=== PATIENT | male | born 1950 | race Caucasian/White ===

== ENCOUNTER → 2018-11-03 | Outpatient (RCR) | payer MEDICARE, OTHER ==
--- NOTE | 2018-10-31 14:43 | CARECAPL ---
Assessment Account #s: Initial Assessment General Diagnoses: Stent, STEMI Date of event: Sep 26, 2018 Physician: Jr Hwang Collins Allergies: Coded Allergies: No Known Drug Allergy (Verified Allergy, Unknown, 11/16/14) Date Entered Program: Oct 31, 2018 Risk strat for cardiac event: Low Exercise Date: Oct 31, 2018 Assessment: Initial Assessment Exercise Prescription Plan TO EDUCATE AND BUILD ENDURANCE THROUGH MONITORED EXERCISE Modalities initiated: Nustep (METS=2.6/RPE=2), Arm Aerometer (METS=2.9/RPE=3), Recumbent Bike (METS=3.7/RPE=2) Frequency: 3 Duration (Minutes) 30-60 minutes total exercise a day. 12-15 work intervals in minutes. 5 MINUTES PRN rest intervals in minutes. Functional Capacity Goal Sustained Metabolic Equivalent of a task (MET) goal of 4.25-5.0 for 15-20 MINUTES minutes. Intensity: 3-Moderate Progression (METS) Increase by: 0.5 METS every: 3-5 sessions Angina with ex: No Target Heart Rate +35-40 BASED ON BETA SHIKHA THERAPY Resistance Training: Yes Weight (pounds): 2 Reps: 12-15 (WILL ADD) Hypertension: Yes Hypertension controlled with: Medication Resting 158/80 Peak Exercise BP 180/100 Medications Scheduled Apixaban Base (Eliquis), 5 MG PO BID, (Reported) Aspirin (Aspir-Low), 81 MG PO DAILY, (Reported) Atorvastatin Calcium (Atorvastatin Calcium), 80 MG PO DAILY, (Reported) Metoprolol Succinate (Metoprolol Succinate ER), 50 MG PO DAILY, (Reported) Nitroglycerin (Nitroglycerin), 0.4 MG SL ASDIRECTED, (Reported) Ticagrelor Base (Brilinta), 90 MG PO BID, (Reported) Discontinued Medications Acetaminophen (Tylenol), 650 MG PO Q4HP PRN for TEMP => 100, (Reported) Discontinued Reason: Pt states not taking Oxycodone/Acetaminophen (Percocet 5-325 mg), 1 TAB PO Q4HP PRN for PAIN, (Reported) Discontinued Reason: Pt states not taking Warfarin Sod (Coumadin), 2.5 MG PO DAILY@5PM, (Reported) Discontinued Reason: Pt states not taking Current BP 122/86 Med Change: No Intervention Education: Self pulse, Ex safety, S/S to report, Low NA diet, BP medication, RPE Scale, Equipment orientation, warm up/cool down, Understand BP, Physical Active Target Goals Individual exercise Rx (1) BP 140/90 or 130/80 if DM or CKD (1) Aerobic active 30+min 5 days per week (1) Nutrition Date: Oct 31, 2018 Assessment: Initial Assessment Lipid- med/supplement ATORVASTATIN 80 MG DAILY Med Change: No Diabetes Diabetes: No Monitor Blood Sugar at home: No Medication Change: No Blood sugar in range: Yes Weight Management Weight (lbs): 222.2 Height (inches): 74 Waist Circumference (Inches): 42 BMI: 28.5 Special Diet: low salt, low-fat Alcohol: none Diet Access Tool: Rate your plate Score: 64 Current Weight (pounds): 222 Intervention Product Control And Logistics Analyst Consult: No Nurse/patient discussion: Yes Dietary Goals TO MAKE HEART HEALTHY CHOICES Diet Class: Yes Referral to Diabetes education: No Referral to lipid clinic: No Referral to weight mangement p: No Education Eating Healthy Target goal LDL-C<100 if triglycerides are >200 Non-HDL-C should be <130 (1) LDL-C<70 for high risk patients (4) HbA1c<7% (1) BMI<25 Waist cir<40in M/<35in F (1) Education Date: Oct 31, 2018 Assessment: Initial Assessment Learning Barriers: ready Knowledge Test Score: 9 Family Support: Yes Tobacco use: No Intervention Referral to smoking cessation: No Individual education and couns: No Tobacco Adjunct: No Education class schedule given: No Attended education classes: No Education: CAD, Risk factors, med compliance, cardiac A&P, Angina S/S, Sexuality Target Goals Complete cessation of tobacco use (1). Psychosocial Date: Oct 31, 2018 Assessment: Initial Assessment Psych Test (Initial/Discharge) Tool Used: CESD Score: 0 Intervention Physician Consult: No Physician Referral: No Med Change: No Stress Management Class: No Uses Stress Management Skills: Yes Education Education: Coping Techniques, S/S depression, Relaxation Techniques Target Goal Assess presence or absence of depression using a valid screening tool (1). Maximize coping skills (2). Positive support system (2). Patient/Program Goal Preventative Medication: Yes Aspirin, Yes Beta blockade, Yes Statin/OTR lipid Lowering Fall Risk Assess: Yes (NOT A FALL RISK) Provider Assessment Session Number: 1 Provider Assessment: Proceed with rehab Austin Onofre RN Oct 31, 2018 14:43
[~2018-11-03] MED LIST: ASPI81TA21 PO; ATOR80TA59 PO; BRIL90TA PO; COUM2.5T17 PO; ELIQ5TAB PO; METO1TAB7 PO; NITR0.4S14 SL; PERC5TAB12 PO; TYLE325T5 PO; aleve OR
== END ==
LOC: M CR 10-31 12:02
PROVIDERS: ATTEND Internal Medicine
DX: Z98.61 Coronary angioplasty status (principal)

== ENCOUNTER 2018-12-02 09:00 | Outpatient (RCR) | payer MEDICARE, OTHER ==
--- NOTE | 2018-11-23 10:54 | CARECAPL ---
Assessment Account #s: Re-Assessment I General Diagnoses: Stent, STEMI Date of event: Sep 26, 2018 Physician: Jr Hwang Collins Allergies: Coded Allergies: No Known Drug Allergy (Verified Allergy, Unknown, 11/16/14) Date Entered Program: Oct 31, 2018 Risk strat for cardiac event: Low Exercise Date: Nov 23, 2018 Assessment: Re-Assessment I Exercise Prescription Modalities initiated: Treadmill (mets 3.53 RPE 3), Nustep (mets 4.7 RPE 3.5), Arm Aerometer (mets 3.62 RPE 3), Dumbells (5lbs RPE 3), Recumbent Bike (mets 4.5 RPE 3) Frequency: 3 Duration (Minutes) minutes total exercise a day. work intervals in minutes. rest intervals in minutes. Functional Capacity Goal Sustained Metabolic Equivalent of a task (MET) goal of for minutes. Intensity: 3-Moderate Progression (METS) Increase by: METS every: sessions Medications Scheduled Apixaban Base (Eliquis), 5 MG PO BID, (Reported) Aspirin (Aspir-Low), 81 MG PO DAILY, (Reported) Atorvastatin Calcium (Atorvastatin Calcium), 80 MG PO DAILY, (Reported) Metoprolol Succinate (Metoprolol Succinate ER), 50 MG PO DAILY, (Reported) Nitroglycerin (Nitroglycerin), 0.4 MG SL ASDIRECTED, (Reported) Ticagrelor Base (Brilinta), 90 MG PO BID, (Reported) Current BP 150/80 Med Change: No Education Goals Met: Yes Target Goals Individual exercise Rx (1) BP 140/90 or 130/80 if DM or CKD (1) Aerobic active 30+min 5 days per week (1) Nutrition Date: Nov 23, 2018 Assessment: Re-Assessment I Med Change: No Medication Change: No Current Weight (pounds): 220 Intervention Auger Press Operator Consult: No Nurse/patient discussion: No Diet Class: No Education Goals Met: No Target goal LDL-C<100 if triglycerides are >200 Non-HDL-C should be <130 (1) LDL-C<70 for high risk patients (4) HbA1c<7% (1) BMI<25 Waist cir<40in M/<35in F (1) Education Date: Nov 23, 2018 Assessment: Re-Assessment I Education Goals Met: Yes Target Goals Complete cessation of tobacco use (1). Psychosocial Date: Nov 23, 2018 Assessment: Re-Assessment I Med Change: No Stress Management Class: No Uses Stress Management Skills: No Education Goals Met: Yes Target Goal Assess presence or absence of depression using a valid screening tool (1). Maximize coping skills (2). Positive support system (2). Fall Risk Assess: No Provider Assessment Session Number: 10 Provider Assessment: Proceed with rehab Reanna Harp RN Nov 23, 2018 10:54
== END 2018-12-04 ==
LOC: M CR 09:00
PROVIDERS: ATTEND Internal Medicine
DX: Z98.61 Coronary angioplasty status (principal); Z95.5 Presence of coronary angioplasty implant and graft

== ENCOUNTER → 2018-12-13 | Outpatient (REF) | payer MEDICARE, OTHER | LOC: M LAB REF 12:16 | PROVIDERS: ATTEND Nurse Practitioner Adult Health | DX: R20.9 Unspecified disturbances of skin sensation (principal) ==

== ENCOUNTER 2018-12-16 09:11 | Outpatient (RCR) | payer MEDICARE, OTHER ==
--- NOTE | 2018-12-16 09:15 | CARECAPL ---
Assessment Account #s: Re-Assessment II (discharge assessment) General Diagnoses: Stent, STEMI Date of event: Sep 26, 2018 Physician: Erich Encinas Allergies: Coded Allergies: MS - No Known Drug Allergy (Verified Allergy, Unknown, 11/16/14) Date Entered Program: Oct 31, 2018 Risk strat for cardiac event: Low Exercise Date: Dec 16, 2018 Assessment: Followup/Discharge Exercise Prescription Plan to complete a monitored exercise program and be educated regarding the risk of cardiac disease, and necessary changes to make in lifestyle Modalities initiated: Treadmill (2.8/1.5 15min MTS 3.53 RPE 3), Cardio-Strider (L$ MTS 2.9 RPE 3), Arm Aerometer (4.0 MTS 3.78 R{E3), Dumbells (6#), Recumbent Bike (Level 5 10 min MTS 4.9 RPE 3) Frequency: 3 Duration (Minutes) 30-60 minutes total exercise a day. 8-15 work intervals in minutes. as needed - rest intervals in minutes. Functional Capacity Goal Sustained Metabolic Equivalent of a task (MET) goal of 3.94 for 15 minutes. Intensity: 3-Moderate Progression (METS) Increase by: METS every: sessions Angina with ex: No Target Heart Rate rest +35-40 beta anisa therapy Resistance Training: Yes Weight (pounds): 6 Reps: 8-12 Hypertension: Yes (post exercise blood pressure much improved from admission. Many good changes made with diet) Hypertension controlled with: Diet Resting 118/80 Peak Exercise BP 210/90 Meds see below Medications Scheduled Apixaban (Eliquis), 5 MG PO BID, (Reported) Aspirin (Aspir-Low), 81 MG PO DAILY, (Reported) Atorvastatin Calcium (Atorvastatin Calcium), 80 MG PO DAILY, (Reported) Metoprolol Succinate (Metoprolol Succinate), 50 MG PO DAILY, (Reported) Nitroglycerin (Nitroglycerin), 0.4 MG SL ASDIRECTED, (Reported) Ticagrelor Base (Brilinta), 90 MG PO BID, (Reported) Intervention Home exercise: Type (very active with Doctor kinetic) Education: Self pulse, S/S to report, Low NA diet, BP medication, RPE Scale, Equipment orientation, warm up/cool down, Understand BP, Physical Active Education Goals Met: Yes Target Goals Individual exercise Rx (1) BP 140/90 or 130/80 if DM or CKD (1) Aerobic active 30+min 5 days per week (1) Nutrition Date: Dec 16, 2018 Assessment: Followup/Discharge Med Change: No Diabetes Diabetes: Yes HbA1c (%): 5.0 Diabetes medication see medication list Monitor Blood Sugar at home: No Medication Change: No Blood sugar in range: Yes Weight Management Weight (lbs): 214.6 Height (inches): 74 Waist Circumference (Inches): 41 BMI: 27.47 Weight goal: 215 Diet Access Tool: Rate your plate (59) Score: 59 (Making many healthy choices) Intervention Network Engineering Advisor Consult: No (not available) Nurse/patient discussion: Yes Diet Class: No Referral to Diabetes education: No Referral to lipid clinic: No Referral to weight mangement p: No Education S&S hypo/hyper glycemia, Relate Diabetes in CAD, Eating Healthy Education Goals Met: Yes Target goal LDL-C<100 if triglycerides are >200 Non-HDL-C should be <130 (1) LDL-C<70 for high risk patients (4) HbA1c<7% (1) BMI<25 Waist cir<40in M/<35in F (1) Education Date: Dec 16, 2018 Assessment: Followup/Discharge Learning Barriers: ready Knowledge Test Score: 10 Quit: never smoked Intervention Referral to smoking cessation: No Individual education and couns: No Tobacco Adjunct: No Education class schedule given: Yes Attended education classes: Yes Education: CAD, Risk factors, med compliance, cardiac A&P, Angina S/S, Sexuality Education Goals Met: Yes Target Goals Complete cessation of tobacco use (1). Psychosocial Date: Dec 16, 2018 Assessment: Followup/Discharge Psych Test (Initial/Discharge) Tool Used: CESD Score: 0 Intervention Physician Consult: No Physician Referral: No Med Change: No Stress Management Class: Yes Uses Stress Management Skills: Yes Education Education: Coping Techniques, S/S depression, Relaxation Techniques Education Goals Met: Yes Target Goal Assess presence or absence of depression using a valid screening tool (1). Maximize coping skills (2). Positive support system (2). Patient/Program Goal Preventative Medication: Yes Aspirin, Yes Beta blockade, Yes Statin/OTR lipid Lowering Fall Risk Assess: No Provider Assessment Session Number: 20 Provider Assessment: No changes (discharge assessment) Jackelyn Child RN Dec 16, 2018 09:15
== END 2019-01-03 ==
LOC: M CR 09:11
PROVIDERS: ATTEND Internal Medicine
DX: Z98.61 Coronary angioplasty status (principal)

== ENCOUNTER 2019-04-26 12:13 | Emergency (ER) | payer MEDICARE, OTHER ==
[~2019-04-26] VITALS: Ht 188 cm; Wt 88.6 kg
[2019-04-26 12:13] VITALS: BP 123/74
[2019-04-26] MEDS ORDERED: CEPH500C (12:34)
[2019-04-26 13:33] LABS: HEMATOCRIT 39.4 % (42.0-52.0); HEMOGLOBIN 13.5 g/dl (13.5-17.5); MEAN CORPUSCULAR HGB CONC 34.3 g/dl (32.0-36.5); MEAN CORPUSCULAR VOLUME 90.4 fl (80.0-96.0); PLATELET COUNT, AUTOMATED 193 10^3/uL (150-450); RED BLOOD COUNT 4.36 10^6/uL (4.30-6.10); WHITE BLOOD COUNT 6.7 10^3/uL (4.0-10.0)
[2019-04-26 14:05] LABS: BLOOD UREA NITROGEN 14 MG/DL (7-18); C REACTIVE PROTEIN QUANTITATIV < 0.30 MG/DL (0.00-0.30); CALCIUM LEVEL 8.6 MG/DL (8.8-10.2); CARBON DIOXIDE LEVEL 26 MEQ/L (21-32); CHLORIDE LEVEL 106 MEQ/L (98-107); CREATININE FOR GFR 0.91 MG/DL (0.70-1.30); GLOMERULAR FILTRATION RATE > 60.0 (>49); GLUCOSE, FASTING 85 MG/DL (70-100); POTASSIUM SERUM 3.9 MEQ/L (3.5-5.1); SODIUM LEVEL 139 MEQ/L (136-145)
[2019-04-26 14:24] LABS: ERYTHROCYTE SEDIMENTATION RATE 9 mm/hr (0-20)
[2019-04-26] MEDS ORDERED: LIDOCAINE 2% MDV 20 ML VIAL SC ONE (15:15)
[2019-04-26] MEDS ORDERED: BACT800T5 PO (15:36)
--- NOTE | 2019-04-26 15:46 | REP ---
HISTORY: Swelling and lump in the left medial calf region. Multiple ultrasonographic images over the region of the palpable abnormality show a hypoechoic area which measures 3.6 x 1 x 2 cm, having the appearance of a complex fluid collection. Surrounding soft tissues appear somewhat echogenic and thickened, likely due to edematous changes. Abnormal collection of fluid with edema as described above. A developing abscess should be clinically evaluated for. Electronically Signed by Eulalio Monreal DO 04/26/2019 05:19 P
== END 2019-04-26 16:01 | disposition home or self-care (01) ==
LOC: M ED 12:13
DX: S80.812A Abrasion, left lower leg, initial encounter (principal); L03.116 Cellulitis of left lower limb; I25.10 Atherosclerotic heart disease of native coronary artery without angina pectoris; I10 Essential (primary) hypertension; E78.5 Hyperlipidemia, unspecified; Z95.5 Presence of coronary angioplasty implant and graft; Z79.01 Long term (current) use of anticoagulants; Z79.899 Other long term (current) drug therapy

== ENCOUNTER 2019-10-16 07:37 | Day surgery (SDC) | payer MEDICARE, OTHER ==
[~2019-10-16] VITALS: Ht 188 cm; Wt 97.5 kg
[~2019-10-16 07:37] MED LIST changes: +ASPI81TA85 PO; +BACT800T5 PO; +CEPH500C; +NS 1,000 ML IV ONE
--- NOTE | 2019-10-16 09:06 | ROOR ---
Patient Name: Amado Bradford Procedure Date: 10/16/2019 8:33 AM Date of : 1950 Age: 68 Room: [facility] Gender: Male Note Status: Finalized Procedure: Total Colonoscopy to Cecum + Biopsy Polypectomy Indications: Screening for colorectal malignant neoplasm Providers: Austin Tavera MD Referring MD: PERRY TIMMONS JR, MD Requesting Provider: Medicines: Monitored Anesthesia Care Complications: No immediate complications. Procedure: Pre-Anesthesia Assessment: - The heart rate, respiratory rate, oxygen saturations, blood pressure, adequacy of pulmonary ventilation, and response to care were monitored throughout the procedure. The Colonoscope was introduced through the anus and advanced to the cecum, identified by appendiceal orifice and ileocecal valve. The colonoscopy was performed without difficulty. The patient tolerated the procedure well. The quality of the bowel preparation was excellent. Findings: The perianal and digital rectal examinations were normal. Non-bleeding internal hemorrhoids were found during retroflexion. The hemorrhoids were small and Grade I (internal hemorrhoids that do not prolapse). Multiple small and large-mouthed diverticula were found in the recto-sigmoid colon, sigmoid colon and descending colon. A small polyp was found at 20 cm proximal to the anus. The polyp was sessile. The polyp was removed with a jumbo cold forceps. Resection and retrieval were complete. To prevent bleeding after the polypectomy, one hemostatic clip was successfully placed (MR conditional). There was no bleeding at the end of the procedure. The exam was otherwise without abnormality on direct and retroflexion views. Impression: - Non-bleeding internal hemorrhoids. - Diverticulosis in the recto-sigmoid colon, in the sigmoid colon and in the descending colon. - One small polyp at 20 cm proximal to the anus, removed with a jumbo cold forceps. Resected and retrieved. Clip (MR conditional) was placed. - The examination was otherwise normal on direct and retroflexion views. - The exam was otherwise normal to the cecum. Recommendation: - Patient has a contact number available for emergencies. The signs and symptoms of potential delayed complications were discussed with the patient. Return to normal activities tomorrow. Written discharge instructions were provided to the patient. - High fiber diet. - Discharge patient to home. - Continue present medications. - Await pathology results. - Telephone GI clinic for pathology results in 1 week. - Return to referring physician. - Repeat colonoscopy for symptoms only. - The findings and recommendations were discussed with the patient's family. - Resume antiplatelet medication at prior dose today. Austin Tavera MD Austin Tavera MD 10/16/2019 9:06:21 AM Electronically signed by Austin Tavera MD Number of Addenda: 0 Note Initiated On: 10/16/2019 8:33 AM Estimated Blood Loss: Estimated blood loss: none.
[2019-10-16] MEDS ORDERED: propofoL 200 MG/20 ML VIAL As Ordered ONE (09:15)
[2019-10-16 09:20] VITALS: BP 117/59
== END 2019-10-16 09:30 | disposition home or self-care (01) ==
LOC: M OPP 07:37
PROVIDERS: ATTEND Internal Medicine Gastroenterology
DX: Z12.11 Encounter for screening for malignant neoplasm of colon (principal); D12.8 Benign neoplasm of rectum; K64.0 First degree hemorrhoids; K57.30 Diverticulosis of large intestine without perforation or abscess without bleeding; I10 Essential (primary) hypertension; I25.2 Old myocardial infarction; Z95.5 Presence of coronary angioplasty implant and graft; E78.00 Pure hypercholesterolemia, unspecified; M19.90 Unspecified osteoarthritis, unspecified site; Z79.899 Other long term (current) drug therapy; Z79.82 Long term (current) use of aspirin; Z79.02 Long term (current) use of antithrombotics/antiplatelets

== ENCOUNTER → 2020-11-14 | Outpatient (REF) | payer MEDICARE, OTHER ==
[~2020-11-14] MED LIST changes: -ASPI81TA85 PO; +ASPI81TA86 PO; -NS 1,000 ML IV ONE
== END ==
LOC: M LAB REF 19:18
PROVIDERS: ATTEND Dermatology
DX: L90.5 Scar conditions and fibrosis of skin (principal); L57.8 Other skin changes due to chronic exposure to nonionizing radiation

== ENCOUNTER → 2021-06-03 | Outpatient (REF) | payer MEDICARE, OTHER ==
[2021-06-03 12:36] LABS: TOTAL PROTEIN 7.3 GM/DL (6.4-8.2)
[2021-06-03 12:45] LABS: FOLATE 10.7 NG/ML; VITAMIN B12 LEVEL 433 PG/ML
[2021-06-04 13:32] LABS: ALBUMIN % 59.2 % (55.8-66.1); ALPHA-1-GLOBULIN % 3.6 % (2.9-4.9); ALPHA-2-GLOBULINS % 12.7 % (7.1-11.8); BETA-1-GLOBULINS % 6.3 % (4.7-7.2)
[2021-06-04 13:33] LABS: ALBUMIN 4.32 GM/DL (3.29-5.55); ALPHA-1-GLOBULINS 0.26 GM/DL (0.17-0.41); ALPHA-2-GLOBULINS 0.93 GM/DL (0.42-0.99); BETA-1-GLOBULINS 0.46 GM/DL (0.28-0.60); BETA-2-GLOBULINS % 6.8 % (3.2-6.5); GAMMA GLOBULIN % 11.4 % (11.1-18.8); GAMMA GLOBULINS 0.83 GM/DL (0.65-1.58)
== END ==
LOC: M LAB REF 11:49
PROVIDERS: ATTEND Internal Medicine
DX: G60.9 Hereditary and idiopathic neuropathy, unspecified (principal)

== ENCOUNTER → 2021-07-29 | Outpatient (CLI) | payer MEDICARE, OTHER ==
--- NOTE | 2021-07-29 09:24 | REP ---
INDICATION: LEFT HIP OSTEOARTHRITIS COMPARISON: 06/24/2015 TECHNIQUE: PA and lateral. FINDINGS: The mediastinum and cardiac silhouette are normal. The lung malik are clear and without acute consolidation, effusion, or pneumothorax. The skeletal structures are intact and normal. IMPRESSION: No acute cardiopulmonary process. <Electronically signed by Preston Byrnes > 07/29/21 [id number]
[2021-07-29 09:47] LABS: HEMATOCRIT 45.1 % (42.0-52.0); HEMOGLOBIN 15.3 g/dl (13.5-17.5); MEAN CORPUSCULAR HEMOGLOBIN 30.8 pg (27.0-33.0); MEAN CORPUSCULAR HGB CONC 33.9 g/dl (32.0-36.5); MEAN CORPUSCULAR VOLUME 90.7 fl (80.0-96.0); PLATELET COUNT, AUTOMATED 204 10^3/uL (150-450); RED BLOOD COUNT 4.97 10^6/uL (4.30-6.10); WHITE BLOOD COUNT 6.7 10^3/uL (4.0-10.0)
[2021-07-29 10:02] LABS: INR 0.93; PROTHROMBIN TIME 12.8 SECONDS (12.7-14.5)
[2021-07-29 10:17] LABS: ALBUMIN 4.1 GM/DL (3.2-5.2); ALT/SGPT 27 U/L (12-78); BILIRUBIN,TOTAL 0.5 MG/DL (0.2-1.0); BLOOD UREA NITROGEN 14 MG/DL (7-18); CALCIUM LEVEL 9.1 MG/DL (8.8-10.2); CARBON DIOXIDE LEVEL 27 MEQ/L (21-32); CHLORIDE LEVEL 106 MEQ/L (98-107); GLOMERULAR FILTRATION RATE > 60.0 (>42); GLUCOSE, FASTING 100 MG/DL (70-100); SODIUM LEVEL 139 MEQ/L (136-145); TOTAL PROTEIN 7.3 GM/DL (6.4-8.2)
[2021-07-29 11:19] LABS: ERYTHROCYTE SEDIMENTATION RATE 7 mm/hr (0-20)
--- NOTE | 2021-07-29 22:07 | ECGEPIP ---
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 Electronically Signed on 07-29-2021 22:07:30 EST by Rohith Costello
== END ==
LOC: M RAD 08:58
PROVIDERS: ATTEND Orthopaedic Surgery
DX: M16.12 Unilateral primary osteoarthritis, left hip (principal); Z79.01 Long term (current) use of anticoagulants

== ENCOUNTER → 2022-05-15 | Outpatient (CLI) | payer MEDICARE, OTHER | LOC: M PLARAD 09:08 | PROVIDERS: ATTEND Orthopaedic Surgery | DX: Z96.643 Presence of artificial hip joint, bilateral (principal); M48.061 Spinal stenosis, lumbar region without neurogenic claudication ==

== ENCOUNTER → 2022-06-18 | Outpatient (CLI) | payer MEDICARE, OTHER ==
[2022-06-18 11:16] LABS: PLATELET COUNT, AUTOMATED 213 10^3/uL (150-450)
[2022-06-18 11:28] LABS: INR 0.97; PARTIAL THROMBOPLASTIN TIME 26.8 SECONDS (24.8-34.2); PROTHROMBIN TIME 13.1 SECONDS (12.5-14.5)
== END ==
LOC: M PLALAB 10:01
PROVIDERS: ATTEND Physical Medicine & Rehabilitation
DX: M48.062 Spinal stenosis, lumbar region with neurogenic claudication (principal); Z79.01 Long term (current) use of anticoagulants

== ENCOUNTER 2023-04-03 02:51 | Emergency (ER) | payer MEDICARE, OTHER ==
[~2023-04-03] VITALS: Ht 188 cm; Wt 98.6 kg
[2023-04-03 03:39] LABS: BASO % 0.2 % (0.0-1.0); EOS % 0.1 % (0.0-3.0); HEMATOCRIT 41.4 % (42.0-52.0); HEMOGLOBIN 14.2 g/dl (13.5-17.5); LYMPH # 0.9 10^3/uL (1.5-5.0); LYMPH % 6.4 % (24.0-44.0); MEAN CORPUSCULAR HEMOGLOBIN 30.7 pg (27.0-33.0); MEAN CORPUSCULAR HGB CONC 34.3 g/dl (32.0-36.5); MEAN CORPUSCULAR VOLUME 89.6 fl (80.0-96.0); MONO # 0.8 10^3/uL (0.0-0.8); MONO % 5.8 % (2.0-8.0); NEUTROPHILS # 11.9 10^3/uL (1.5-8.5); NEUTROPHILS % 87.1 % (36.0-66.0); PLATELET COUNT, AUTOMATED 220 10^3/uL (150-450); RED BLOOD COUNT 4.62 10^6/uL (4.30-6.10); WHITE BLOOD COUNT 13.7 10^3/uL (4.0-10.0)
[2023-04-03 04:03] LABS: ALBUMIN 4.1 G/DL (3.2-5.2); BILIRUBIN,DIRECT 0.2 MG/DL (<0.4); BILIRUBIN,TOTAL 0.7 MG/DL (0.3-1.2); CALCIUM LEVEL 9.3 MG/DL (8.3-10.6); CREATININE FOR GFR 1.34 MG/DL (0.70-1.30); GLOMERULAR FILTRATION RATE 55.8 (>42); POTASSIUM SERUM 4.5 MMOL/L (3.5-5.1)
[2023-04-03] MEDS ORDERED: ACETAMINOPHEN TAB 650MG DOSE (2X325MG) PO ONE (04:15)
[2023-04-03] MEDS ORDERED: ONDA4TAB6 PO (10:38)
[2023-04-03] MEDS ORDERED: FLOM0.4C39 PO (10:38)
[2023-04-03] MEDS ORDERED: PERC5TAB12 PO (10:38)
[2023-04-03 11:09] VITALS: BP 121/61; TEMP 98.8; O2SAT 96
== END 2023-04-03 11:14 | disposition home or self-care (01) ==
LOC: M ED 02:51
DX: N20.1 Calculus of ureter (principal); I25.10 Atherosclerotic heart disease of native coronary artery without angina pectoris; E78.5 Hyperlipidemia, unspecified

== ENCOUNTER → 2023-06-14 | Outpatient (CLI) | payer MEDICARE, OTHER ==
[~2023-06-14] MED LIST changes: +FLOM0.4C39 PO; +ONDA4TAB6 PO
[2023-06-14 17:03] LABS: APPEARANCE, URINE CLEAR (CLEAR); BACTERIA, URINE AUTO NEGATIVE (NEGATIVE); BILIRUBIN, URINE AUTO NEGATIVE (NEGATIVE); BLOOD, URINE BLOOD 1+ (NEGATIVE); COLOR, URINE YELLOW (YELLOW); GLUCOSE, URINE (UA) AUTO NEGATIVE (NEGATIVE); KETONE, URINE AUTO NEGATIVE (NEGATIVE); LEUKOCYTE ESTERASE, URINE AUTO NEGATIVE (NEGATIVE); NITRITE, URINE AUTO NEGATIVE (NEGATIVE); PROTEIN, URINE AUTO NEGATIVE (NEGATIVE); RBC, URINE AUTO 0 /HPF (0-3); SPECIFIC GRAVITY URINE AUTO 1.011 (1.002-1.035); SQUAMOUS EPITHELIAL CELL UR AU 0 /HPF (0-6); UROBILINOGEN, URINE AUTO 0.2 mg/dL (0.0-2.0); WBC, URINE AUTO 0 /HPF (0-3)
[2023-06-14 17:09] LABS: HEMATOCRIT 40.1 % (42.0-52.0); HEMOGLOBIN 13.7 g/dl (13.5-17.5); MEAN CORPUSCULAR HEMOGLOBIN 30.9 pg (27.0-33.0); MEAN CORPUSCULAR HGB CONC 34.2 g/dl (32.0-36.5); MEAN CORPUSCULAR VOLUME 90.5 fl (80.0-96.0); PLATELET COUNT, AUTOMATED 213 10^3/uL (150-450); RED BLOOD COUNT 4.43 10^6/uL (4.30-6.10); WHITE BLOOD COUNT 9.5 10^3/uL (4.0-10.0)
[2023-06-14 17:26] LABS: BLOOD UREA NITROGEN 16 MG/DL (9-23); CALCIUM LEVEL 8.9 MG/DL (8.3-10.6); CARBON DIOXIDE LEVEL 27 MMOL/L (20-31); CHLORIDE LEVEL 108 MMOL/L (98-107); CREATININE FOR GFR 0.98 MG/DL (0.70-1.30); GLOMERULAR FILTRATION RATE > 60.0 (>42); GLUCOSE, FASTING 108 MG/DL (74-106); POTASSIUM SERUM 4.1 MMOL/L (3.5-5.1); SODIUM LEVEL 142 MMOL/L (136-145)
== END ==
LOC: M PLAIMG 15:09
PROVIDERS: ATTEND Physician Assistant
DX: Z01.818 Encounter for other preprocedural examination (principal); N20.0 Calculus of kidney

== ENCOUNTER 2023-06-23 07:36 | Day surgery (SDC) | payer MEDICARE, OTHER ==
[~2023-06-23] VITALS: Ht 188 cm; Wt 100.7 kg
[~2023-06-23 07:36] MED LIST changes: +ceFAZolin SOD 2 GM in IV 1 EA IV ONE
[2023-06-23] MEDS ORDERED: LR 1,000 ML IV SCH ×2 (07:55→12:55)
[2023-06-23] MEDS ORDERED: LIDOCAINE 2% 100MG/5ML SDV (FOR ANES.) As Ordered ONE (08:38)
[2023-06-23] MEDS ORDERED: MIDAZOLAM INJ 2MG/2ML VIAL As Ordered ONE (08:38)
[2023-06-23] MEDS ORDERED: propofoL 200 MG/20 ML VIAL As Ordered ONE (08:38)
[2023-06-23] MEDS ORDERED: fentaNYL 100 MCG/2 ML INJECTION As Ordered ONE ×2 (08:38→12:44)
[2023-06-23] MEDS ORDERED: ISOVUE-300 61% 100ML VIAL As Ordered ONE (10:31)
[2023-06-23] MEDS ORDERED: ACETAMINOPHEN 1000MG 100ML IV BAG As Ordered ONE (12:06)
[2023-06-23] MEDS ORDERED: ONDANSETRON 4MG 2ML VIAL As Ordered ONE (12:06)
[2023-06-23] MEDS ORDERED: KETOROLAC 60MG 2ML VIAL As Ordered ONE (12:06)
[2023-06-23] MEDS ORDERED: ePHEDrine SULFATE 25 MG/5 ML(5MG/ML) SYRINGE As Ordered ONE (12:36)
[2023-06-23] MEDS ORDERED: PHENYLephrine 500MCG 5ML (100MCG/ML) SYRINGE As Ordered ONE (12:36)
[2023-06-23] MEDS ORDERED: fentaNYL 100 MCG/2 ML INJECTION IV PRN (12:55)
[2023-06-23] MEDS ORDERED: MEPERIDINE 25 MG/ML 1ML VIAL IV PRN (12:55)
[2023-06-23] MEDS ORDERED: ONDANSETRON 4MG 2ML VIAL IV PRN (12:55)
[2023-06-23] MEDS ORDERED: PERCOCET 5MG/325MG TAB PO PRN (13:20)
[2023-06-23 13:45] VITALS: BP 173/84; TEMP 96.7; O2SAT 96
[2023-07-01 21:07] LABS: Ca Ox Monohydrate 10 % (.); Size 4x3 mm (.); Uric Acid 90 % (.)
== END 2023-06-23 15:14 | disposition home or self-care (01) ==
LOC: M SDC 07:36
PROVIDERS: ATTEND Urology
DX: N13.2 Hydronephrosis with renal and ureteral calculous obstruction (principal); I25.2 Old myocardial infarction; Z95.5 Presence of coronary angioplasty implant and graft; I10 Essential (primary) hypertension; E78.00 Pure hypercholesterolemia, unspecified; Z79.899 Other long term (current) drug therapy
CPT/HCPCS: 52356; 74420; 82365; C1769; C1894; C2617; J0131; J1100; J1885; J2250; J2371; J2405; J3010; Q9967

== ENCOUNTER → 2024-01-05 | Outpatient (CLI) | payer MEDICARE, OTHER ==
[~2024-01-05] MED LIST changes: -ceFAZolin SOD 2 GM in IV 1 EA IV ONE
== END ==
LOC: M RAD 13:33
PROVIDERS: ATTEND Urology
DX: N20.0 Calculus of kidney (principal)

== ENCOUNTER → 2024-03-16 | Outpatient (CLI) | payer MEDICARE, OTHER ==
[~2024-03-16] MED LIST changes: +ONDA-282 PO; -ONDA4TAB6 PO
== END ==
LOC: M PLARAD 09:19
PROVIDERS: ATTEND Orthopaedic Surgery
DX: M51.36 Other intervertebral disc degeneration, lumbar region (principal); M47.26 Other spondylosis with radiculopathy, lumbar region; M47.896 Other spondylosis, lumbar region

== ENCOUNTER → 2025-01-09 | Outpatient (CLI) | payer MEDICARE, OTHER ==
[~2025-01-09] MED LIST changes: -FLOM0.4C39 PO; +TAMS-18 PO
== END ==
LOC: M RAD 14:09
PROVIDERS: ATTEND Physician Assistant
DX: Z87.442 Personal history of urinary calculi (principal)

== ENCOUNTER → 2025-01-24 | Outpatient (CLI) | payer MEDICARE, OTHER | LOC: M PLAIMG 10:25 | PROVIDERS: ATTEND Physician Assistant | DX: N20.0 Calculus of kidney (principal); N28.1 Cyst of kidney, acquired; K57.30 Diverticulosis of large intestine without perforation or abscess without bleeding ==